=== PATIENT | male | born 1990 | race African-American/Black ===

== ENCOUNTER 2017-02-11 01:17 | Emergency (ER) | payer SELFPAY ==
[2017-02-11 01:19] VITALS: BP 128/82; PULSE 78; RESP 16; TEMP 98.9; O2SAT 99
[2017-02-11] MEDS ORDERED: TETANUS/DIPHTHERIA TOXOID ADULT 0.5 ML VIAL IM ONE (02:00)
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
== END 2017-02-11 02:19 | disposition home or self-care (01) ==
LOC: NEPD 01:17
DX: S20.412A Abrasion of left back wall of thorax, initial encounter (principal); S50.812A Abrasion of left forearm, initial encounter; X99.9XXA Assault by unspecified sharp object, initial encounter
CPT/HCPCS: 99282